=== PATIENT | female | born 1975 | race Caucasian/White ===

== ENCOUNTER 2019-09-21 13:23 | Emergency (ER) | payer BC ==
[2019-09-21 13:42] VITALS: BP 161/90; PULSE 97
[2019-09-21] MEDS ORDERED: Ketorolac 60 MG/2 ML SDV IM ONE (13:46)
--- NOTE | 2019-09-21 14:09 | EDM.PDOC ---
ED HPI GENERAL MEDICAL PROBLEM - General Chief Complaint: Lower Extremity Injury/Pain Stated Complaint: RIGHT KNEE PAIN Time Seen by Provider: 09/21/19 14:09 Source of Information: Reports: Patient History Limitations: Reports: No Limitations - History of Present Illness INITIAL COMMENTS - FREE TEXT/NARRATIVE: HISTORY AND PHYSICAL: History of present illness: Patient is a 44-year-old female who presents to the emergency room with complaints of left knee pain. She states she was bending down when she felt a pop to her left knee. She states it became painful to ambulate and bear weight. Denies falling, any traumatic injury or previous surgery of this affected extremity. Offers no systemic complaints. Review of systems: As per history of present illness and below otherwise all systems reviewed and negative. Past medical history: As per history of present illness and as reviewed below otherwise noncontributory. Surgical history: As per history of present illness and as reviewed below otherwise noncontributory. Social history: See social history for further information Family history: As per history of present illness and as reviewed below otherwise noncontributory. Physical exam: General: Well-developed and well-nourished 44-year-old female. Alert and oriented. Nontoxic appearing and in no acute distress. HEENT: Atraumatic, normocephalic, pupils equal and reactive bilaterally, negative for conjunctival pallor or scleral icterus, mucous membranes moist, trachea midline. No drooling or trismus noted. No meningeal signs. No hot potato voice noted. Lungs: Clear to auscultation, breath sounds equal bilaterally, chest nontender. Heart: S1S2, regular rate and rhythm without overt murmur Abdomen: Soft, nondistended, nontender. Negative for masses. Skin: Intact, warm, dry. No lesions or rashes noted. Extremities: Mild pain with palpation of the medial and lateral knee. She moves all extremities per self without difficulty or deficits, negative for cords or calf pain. Strong pedal pulses. Neurovascular unremarkable. Neuro: Awake, alert, oriented. Cranial nerves II through XII unremarkable. Cerebellum unremarkable. Motor and sensory unremarkable throughout. Exam nonfocal. Notes: X-ray shows no acute findings. Crutches and Buck wrap were applied with education. We discussed the importance of following up with orthopedic provider. Supportive care measures were reviewed and discussed. Voices understanding and is agreeable to plan of care. Denies any further questions or concerns at this time. Diagnostics: Knee x-ray Therapeutics: Buck wrap, crutches Prescription: Diclofenac Impression: Knee injury, left Plan: 1. Rest, ice, elevate the affected extremity. Please wear the buck wrap and crutches as directed. 2. Tylenol and/or Ibuprofen as needed for pain management. 3. Follow up with the Orthopedic provider as we discussed. Return to the ED as needed and as discussed. Definitive disposition and diagnosis as appropriate pending reevaluation and review of above. Left Knee Pain Score (Numeric/FACES): 7 - Related Data Allergies Allergy/AdvReac Type Severity Reaction Status Date / Time adhesive Allergy Rash Verified 09/21/19 13:38 insect venom Allergy Anaphylactic Uncoded 09/21/19 13:38 Shock Home Meds: Home Meds ALPRAZolam [Xanax] 1 mg PO QID PRN 02/07/15 [History] Past Medical History Psychiatric History: Reports: Anxiety Oncologic (Cancer) History: Reports: Uterine - Infectious Disease History Infectious Disease History: Reports: Chicken Pox - Past Surgical History Female Surgical History: Reports: Hysterectomy Social & Family History - Family History Family Medical History: Noncontributory - Tobacco Use Smoking Status *Q: Current Every Day Smoker Years of Tobacco use: 30 Packs/Tins Daily: 1 - Caffeine Use Caffeine Use: Reports: Coffee - Recreational Drug Use Recreational Drug Use: No Review of Systems - Review of Systems Review Of Systems: Comprehensive ROS is negative, except as noted in HPI. ED EXAM, GENERAL - Physical Exam Exam: See Below (See dictation) Course - Vital Signs Last Recorded V/S: Last Vital Signs Temp 98.4 F 09/21/19 13:39 Pulse 97 09/21/19 13:39 Resp 20 09/21/19 13:39 BP 161/90 H 09/21/19 13:39 Pulse Ox 100 09/21/19 13:39 - Orders/Labs/Meds Orders: Active Orders 24 hr Category Date Time Status DME for Discharge [COMM] Stat Oth 09/21/19 13:47 Ordered Meds: Medications Discontinued Medications Generic Name Dose Route Start Last Admin Trade Name Freq PRN Reason Stop Dose Admin Ketorolac Tromethamine 60 mg 09/21/19 13:46 09/21/19 14:20 Toradol IM 09/21/19 13:47 60 mg ONETIME ONE Administration Departure - Departure Time of Disposition: 14:43 Disposition: Home, Self-Care 01 Clinical Impression: Left knee injury Qualifiers: Encounter type: initial encounter Qualified Code(s): S89.92XA - Unspecified injury of left lower leg, initial encounter - Discharge Information Instructions: Knee Sprain, Adult, [id number] Referrals: Adilene Tracy, BOAT CANVAS MAKER INSTALLER [Primary Care Provider] - Forms: ED Department Discharge Additional Instructions: The following information is given to patients seen in the emergency department who are being discharged to home. This information is to outline your options for follow-up care. We provide all patients seen in our emergency department with a follow-up referral. The need for follow-up, as well as the timing and circumstances, are variable depending upon the specifics of your emergency department visit. If you don't have a primary care physician on staff, we will provide you with a referral. We always advise you to contact your personal physician following an emergency department visit to inform them of the circumstance of the visit and for follow-up with them and/or the need for any referrals to a consulting specialist. The emergency department will also refer you to a specialist when appropriate. This referral assures that you have the opportunity for follow-up care with a specialist. All of these measure are taken in an effort to provide you with optimal care, which includes your follow-up. Under all circumstances we always encourage you to contact your private physician who remains a resource for coordinating your care. When calling for follow-up care, please make the office aware that this follow-up is from your recent emergency room visit. If for any reason you are refused follow-up, please contact the [facility] Emergency Department at and asked to speak to the emergency department charge nurse. [facility] [address] [place] [id number] [facility] [address] [place] [address] 1. Rest, ice, elevate the affected extremity. Please wear the buck wrap and crutches as directed. 2. Tylenol and/or Ibuprofen as needed for pain management. 3. Follow up with the Orthopedic provider as we discussed. Return to the ED as needed and as discussed. - My Orders Last 24 Hours: My Active Orders 09/21/19 13:47 DME for Discharge [COMM] Stat - Assessment/Plan Last 24 Hours: My Active Orders 09/21/19 13:47 DME for Discharge [COMM] Stat
--- NOTE | 2019-09-21 14:38 | CR ---
INDICATION: Left knee pain. TECHNIQUE: Three views the left knee. FINDINGS: Bones and joint spaces are intact. No fracture, dislocation, or significant joint effusion. No destructive or osteolytic lesions. Narrowing of the lateral patellofemoral joint space on the lateral film Dictated by Sb Phelan MD @ Sep 21 2019 2:34PM Signed by Dr. Sb Phelan @ Sep 21 2019 2:38PM
== END 2019-09-21 14:56 | disposition home or self-care (01) ==
LOC: MW.ED 13:23
DX: S89.92XA Unspecified injury of left lower leg, initial encounter (principal); F41.9 Anxiety disorder, unspecified; F17.210 Nicotine dependence, cigarettes, uncomplicated; Z79.899 Other long term (current) drug therapy; Z91.09 Other allergy status, other than to drugs and biological substances; X50.9XXA Other and unspecified overexertion or strenuous movements or postures, initial encounter
CPT/HCPCS: 73562; 96372; 99283; J1885

== ENCOUNTER 2019-10-11 14:53 | Emergency (ER) | payer BC ==
--- NOTE | 2019-10-11 16:18 | EDM.PDOC ---
ED HPI GENERAL MEDICAL PROBLEM - General Chief Complaint: Lower Extremity Injury/Pain Stated Complaint: LEG INJURY Time Seen by Provider: 10/11/19 16:17 - History of Present Illness INITIAL COMMENTS - FREE TEXT/NARRATIVE: HPI 44-year-old morbidly obese female with a history of recently rupture Bakers cyst presents for evaluation of pain in her distal left posterior That began suddenly with a pop sensation while walking at [employer]. No history of DVT, PE , calf tenderness, exogenous estrogen usage, immobilization, shortness breath, or surgery. ROS with no recent constitutional symptoms. Exam HR 97, RR 20, BP 183/90, T 36.2C, SaO2 98% on room air. Gen: Pleasant, nontoxic-appearing, resting comfortably. HEENT: NC, AT, PEERL, EOMI. Resp: Unlabored respirations with a normal work of breathing. Card: Extremities warm and well perfused. GI: Non-distended. : Deferred MSK: left calf without visible or palpable trauma, muscle compartments soft and non-tender to palpation. Pena test with plantar flexion. No tenderness to palpation over the tibia or fibula. Ankle visually normal without ecchymosis inferior to the lateral malleolus. No tenderness over the posterior lateral malleolus, no tenderness over the posterior medial malleolus. Able to fully dorsiflex, plantarflex, matheus, and invert the ankle with full functional range of motion . Foot visually normal without tenderness to palpation, specifically including the navicular bone and the base of the 5th metatarsal. Able flex and extend all toes. Muscle compartments of the foot are soft. Neurovascular 2+ DP and PT pulses. Sensation grossly intact to touch on the calf. Sensation intact to touch on all toes, first web space, the medial, lateral, plantar and dorsal surfaces of the foot. Gait - Patient able to take four steps with a mildly antalgic gait. Neuro: alert and oriented 3, no facial asymmetry, vision and hearing WNL. Heme/Lymph: Deferred Skin: Normal color with no visible lesions (other than noted above). Psych: Mood and affect appropriate. MDM Previous chart, nursing note, and vitals reviewed. A: 44-year-old morbidly obese female with a history of recently rupture Bakers cyst presents for evaluation of pain in her distal left posterior That began suddenly with a pop sensation while walking at [employer]. DDx & Evaluation: CMS intact, no features suggestive of DVT, fracture, infection /deep space infection. Given the location over the distal posterior calf at the insertion of the Achilles tendon strongly suspect a mild injury to the gastrocnemius muscle/Achilles tendon. Patient remains amatory with minimal discernible discomfort, recommend crutches (which the patient has at home and is declining a pair during todays evaluation), rest, ice, compression, elevation, and PCP follow-up within 48 hours repeat evaluation. Impression: left calf pain. (please reference below for remainder of encounter information) - Related Data Allergies Allergy/AdvReac Type Severity Reaction Status Date / Time adhesive Allergy Rash Verified 09/21/19 13:38 insect venom Allergy Anaphylactic Uncoded 09/21/19 13:38 Shock Home Meds: Home Meds ALPRAZolam [Xanax] 1 mg PO QID PRN 02/07/15 [History] Diclofenac Sodium [Voltaren] 75 mg PO BIDMEALS PRN #30 tab.cr 09/21/19 [Rx] Past Medical History Other Musculoskeletal History: cyst removed from left knee area causing chronic instability per PT Psychiatric History: Reports: Anxiety Oncologic (Cancer) History: Reports: Uterine - Infectious Disease History Infectious Disease History: Reports: Chicken Pox - Past Surgical History Female Surgical History: Reports: Hysterectomy Social & Family History - Family History Family Medical History: Noncontributory - Tobacco Use Smoking Status *Q: Current Every Day Smoker Years of Tobacco use: 30 Packs/Tins Daily: 1 - Caffeine Use Caffeine Use: Reports: Coffee - Recreational Drug Use Recreational Drug Use: No Review of Systems - Review of Systems Review Of Systems: See Below ED EXAM, GENERAL - Physical Exam Exam: See Below Course - Vital Signs Last Recorded V/S: Last Vital Signs Temp 36.2 C 12/28/19 15:21 Pulse 97 10/11/19 15:21 Resp 20 10/11/19 15:21 BP 183/90 H 10/11/19 15:21 Pulse Ox 98 10/11/19 15:21 Departure - Departure Time of Disposition: 16:17 Disposition: Home, Self-Care 01 Clinical Impression: Strain of calf muscle - Discharge Information Referrals: Adilene Tracy, BICYCLE MECHANIC [Primary Care Provider] - Additional Instructions: You were in seen in the [facility] Emergency Department for evaluation of pain to your left calf, your believed to have a strain of your calf muscle, you may use ibuprofen and acetaminophen as directed below for treatment of pain. You may use your crutches to assist with walking. You may return to normal walking as tolerated by mild discomfort. Please read and follow all of the instructions below. Please follow up with your primary care physician within 4 days for repeat evaluation further care as needed. When calling for follow-up care, please make the office aware that this follow-up is from your recent emergency room visit. If for any reason you are refused follow-up, please contact the [facility] Emergency Department at and asked to speak to the emergency department charge nurse. Your care today was limited to identifying and treating emergent medical problems only. Many people have subtle differences in their test results that require follow up with their outpatient physician(s) to correctly determine if this represents a normal variation or concerning abnormality with respect to your specific health. The care given to you today was limited to identifying and treating emergent medical problems - you need to request a copy of all of your medical records from today's visit and follow up with your outpatient physician(s) to review both today's visit and your overall health. If you have any new symptoms or if you are at all concerned about your health please return immediately to the emergency department. You make take over the counter Acetaminophen (Tylenol) and Ibuprofen (Motrin or Aleve) as directed below for relief of pain. Take 600 mg of ibuprofen (three 200 mg tablets) with a glass of water every 6-8 hours as needed for pain or fever. Do not take if you have ulcers, GI bleeding, are , or are allergic to ibuprofen. Take 1,000 mg of acetaminophen (two 500 mg tablets) with a glass of water every 6-8 hours as needed for pain. Do not take if you are allergic to acetaminophen. If you have liver disease, please reduce your dose to a maximum of 2,000 mg per day. You can take these medications at the same time or on separate schedules. Do not take for more than 10 days. Do not take with alcohol or other acetaminophen containing medications. This medication may cause a mildly upset stomach, if so take it with a small snack. Stop taking it if you have persistent abdominal pain, heartburn, or any stomach pain. Do not take this medication if you have known ulcers. Please read the warnings at the end of this document regarding these medications. IBUPROFEN WARNING: This drug may infrequently cause serious (rarely fatal) bleeding from the stomach or intestines. Also, related drugs rarely have caused blood clots to form, resulting in heart attacks and strokes. This medication might also rarely cause similar problems. Talk to your doctor or pharmacist about the benefits and risks of treatment, as well as other possible medication choices. If you notice any of the following rare but very serious side effects, stop taking ibuprofen and seek immediate medical attention: black stools, persistent stomach/abdominal pain, vomit that looks like coffee grounds, chest pain, weakness on one side of the body, sudden vision changes, slurred speech. IBUPROFEN SIDE EFFECTS: Upset stomach, nausea, vomiting, heartburn, headache, diarrhea, constipation, drowsiness, and dizziness may occur. If any of these effects persist or worsen, notify your doctor or pharmacist promptly. If your doctor has directed you to use this medication, remember that he or she has judged that the benefit to you is greater than the risk of side effects. Many people using this medication do not have serious side effects. Tell your doctor immediately if any of these serious side effects occur: stomach pain, swelling of the hands or feet, sudden or unexplained weight gain, ringing in the ears ( tinnitus). Tell your doctor immediately if any of these unlikely but serious side effects occur: vision changes, rapid or pounding heartbeat, easy bruising or bleeding, difficult/painful swallowing. Tell your doctor immediately if any of these highly unlikely but very serious side effects occur: change in amount of urine, severe headache, very stiff neck, mental/mood changes, persistent sore throat or fever. This drug may rarely cause serious (possibly fatal) liver disease. If you notice any of the following highly unlikely but very serious side effects, stop taking ibuprofen and consult your doctor or pharmacist immediately: yellowing eyes and skin, dark urine, unusual/extreme tiredness. An allergic reaction to this drug is unlikely, but seek immediate medical attention if it occurs. Symptoms of an allergic reaction include: rash, itching/ swelling (especially of the face/tongue/throat), severe dizziness, trouble breathing. This is not a complete list of possible side effects. ACETAMINOPHEN SIDE EFFECTS: This drug usually has no side effects. If you do not have liver problems, the maximum dose of acetaminophen for adults is 4 grams per day (4000 milligrams). Taking more than the maximum daily amount may cause serious (possibly fatal) liver damage. Get medical help right away if you have any of the following symptoms of liver damage: persistent nausea/vomiting, extreme tiredness, stomach/abdominal pain, yellowing eyes/skin, dark urine. If you have liver problems, consult your doctor or pharmacist for a safe dosage of this medication. A very serious allergic reaction to this drug is rare. However , get medical help right away if you notice any symptoms of a serious allergic reaction, including: rash, itching/swelling (especially of the face/tongue/ throat), severe dizziness, trouble breathing. This is not a complete list of possible side effects. If you notice other effects not listed above, contact your doctor or pharmacist. DRUG INTERACTIONS: Your healthcare professionals (e.g., doctor or pharmacist) may already be aware of any possible drug interactions and may be monitoring you for it. Do not start, stop or change the dosage of any medicine before checking with them first. This drug should not be used with the following medications because very serious interactions may occur: cidofovir, ketorolac. If you are currently using any of these medications listed above, tell your doctor or pharmacist before starting ibuprofen. Before using this medication, tell your doctor or pharmacist of all prescription and nonprescription/herbal products you may use, especially of: anti-platelet drugs (e.g., cilostazol, clopidogrel), oral bisphosphonates (e.g., alendronate), other medications for arthritis (e.g., aspirin, methotrexate), "blood thinners" (e.g., enoxaparin, heparin, warfarin), corticosteroids (e.g., prednisone), cyclosporine, desmopressin, high blood pressure drugs (including MAULIK inhibitors such as captopril, angiotensin II receptor antagonists such as losartan, and beta- blockers such as metoprolol), lithium, pemetrexed, "water pills" (diuretics such as furosemide, hydrochlorothiazide, triamterene). Check all prescription and nonprescription medicine labels carefully for other pain/fever drugs ( NSAIDs such as aspirin, celecoxib, naproxen). These drugs are similar to ibuprofen, so taking one of these drugs while also taking ibuprofen may increase your risk of side effects. Consult your doctor or pharmacist for more details. However, if your doctor has prescribed low doses of aspirin to prevent heart attack or stroke (usually at dosages of 81-325 milligrams a day), you should continue to take the aspirin. Daily use of ibuprofen may decrease aspirin 's ability to prevent heart attack/stroke. Talk to your doctor about using a different medication (e.g., acetaminophen) to treat pain/fever. If you must take ibuprofen, talk to your doctor about possibly taking immediate-release aspirin (not enteric-coated) while also taking the ibuprofen dose apart from your aspirin dose. Do not increase your daily dose of aspirin or change the way you take aspirin/other medications without your doctor's approval. This document does not contain all possible interactions. Therefore, before using this product, tell your doctor or pharmacist of all the products you use. Keep a list of all your medications with you, and share the list with your doctor and pharmacist. High Blood Pressure (Hypertension) When you were in the emergency department you had an abnormally high blood pressure. High blood pressure can be without symptoms. However high blood pressure can lead to many medical problems including kidney disease, strokes, and heart attacks. Your blood pressure may have been elevated due to pain or the stress of being in the emergency department, however half of people with an elevated blood pressure in the emergency department have buttermaker helper problems with high blood pressure. Please see your primary care physician in 2-3 days for a repeat check of your blood pressure. This may help prevent many health serious problems in the future. Please return to the emergency department if you develop any of the following: chest pain, shortness of breath, new or severe headache, changes in vision or hearing, weakness, or if you are otherwise concerned about your health. Prescriptions: If you are uninsured or have financial difficulties with filling your prescription(s), you may consider using a free pharmacy discount service such as [employer] (Rumble[employer]rx[employer]Bownty) or [employer] ([employer]own[employer]). These services allow you to search for a medication on your phone (or computer) and obtain a coupon that usually has a significant discount from the list couch at a pharmacy. Your physician as well as [facility] does not have a financial relationship with either of these services. You may also wish to speak with your physician to determine if lower cost prescriptions are possible. Obtaining primary care: 1. [facility] provides pediatrics (children), family medicine (children, adults, and some obstetrical care), and internal medicine (adults). Further specialty care is also available. Same day appointments are available. They may be contacted at [phone] and are open Sunday through Sunday 8 AM to 5 PM. The [facility] are located at [facility], [address] [place] [address]. 2. [facility] offers family medicine, internal medicine, [facility], and further specialty care. [facility] may be contacted at [phone]. [facility] is located at [address] [facility] [address]. 3. If you have health insurance, please also contact your insurer for a list of accepting providers under your policy, you may contact these providers for further health care. Occupational health: Work related injuries may consider following up with [facility], . Occupational health services are located at [address] [place] [address] and are open Sunday through Sunday from 7: 30 am to 5:00 pm. Obstetrical and Gynecological Care: [facility], , Sunday through Sunday 8 AM to 5 PM. [address] [address]. Eyecare: If you have an eye injury you should follow up with your stone setter apprentice or with [facility], at [phone] or [phone] , they are located at [address] [place] [address]. Sepsis Event Note - Evaluation Sepsis Screening Result: No Definite Risk - Focused Exam Vital Signs: Vital Signs Temp Pulse Resp BP Pulse Ox 10/11/19 15:21 36.2 C 97 20 183/90 H 98 Date Exam was Performed: 10/11/19 Time Exam was Performed: 16:17
[2019-10-11 16:29] VITALS: BP 182/86; PULSE 86
== END 2019-10-11 16:29 | disposition home or self-care (01) ==
LOC: MW.ED 14:53
DX: S46.912A Strain of unspecified muscle, fascia and tendon at shoulder and upper arm level, left arm, initial encounter (principal); F17.210 Nicotine dependence, cigarettes, uncomplicated; E66.01 Morbid (severe) obesity due to excess calories; Z68.41 Body mass index [BMI] 40.0-44.9, adult; X58.XXXA Exposure to other specified factors, initial encounter
CPT/HCPCS: 99283

== ENCOUNTER 2021-03-21 18:11 | Emergency (ER) | payer BC ==
[2021-03-21] MEDS ORDERED: Dexamethasone 10 MG/ML SDV IM STA (19:14)
--- NOTE | 2021-03-21 19:17 | EDM.PDOC ---
ED HPI GENERAL MEDICAL PROBLEM - General Chief Complaint: Skin Complaint Stated Complaint: POSSIBLE SUN RASH Time Seen by Provider: 03/21/21 19:09 - History of Present Illness INITIAL COMMENTS - FREE TEXT/NARRATIVE: History of present illness: [] The patient was opposed to sunlight briefly and has extreme sun sensitivity and multiple allergies. There is exposed to sunlight on her arms are broken out in a rash over the last day or 2 and it severely pruritic. The patient usually gets a shot of steroids and a short course of steroids and does better. Review of systems: As per history of present illness and below otherwise all systems reviewed and negative. Past medical history: As per history of present illness and as reviewed below otherwise noncontributory. Surgical history: As per history of present illness and as reviewed below otherwise noncontributory. Social history: No reported history of drug or alcohol abuse. Family history: As per history of present illness and as reviewed below otherwise noncont ributory. Physical exam: Constitutional - well developed, well-nourished and in no acute distress HEENT -patient has no voice change, no trismus, no swelling about the mouth or face. Normocephalic, no evidence of trauma - external nose and mouth normal - no mass in neck and no JVD - mucosae moist EYES - full EOM, PERRL, no icterus - no evidence of inflammation, injection, or drainage Respiratory - no respiratory distress, equal bilateral expansion, lungs clear to auscultation and no abnormal lung sounds Cardiovascular - Regular Rhythm with S1 and S2 appreciated and no murmur, gallop or rub. GI - abdomen soft without distension or organomegaly - normal bowel sounds - no guard or rebound Musculoskeletal no gross deformity of long bones or joints - no tenderness, swelling or edema Neurologic - Alert and oriented times four - CN II-XII grossly intact - motor sensory and coordination symmetrically normal Psychiatric - appropriate mood and affect with normal thought content Hematologic - No petechiae or purpura - mucosa appropriate color and sclera not pale - normal nail bed color and refill Integument -patient has a papular extensive rash on the dorsal and lateral arms. Areas that were not exposed to sun or not covered. The palms and soles are spared. Diagnostics: [] Therapeutics: [] Impression: [] Plan: [] Definitive disposition and diagnosis as appropriate pending reevaluation and review of above. upper hands Pain Score (Numeric/FACES): 3 - Related Data Allergies Allergy/AdvReac Type Severity Reaction Status Date / Time adhesive Allergy Rash Verified 03/21/21 19:15 insect venom Allergy Anaphylactic Uncoded 03/21/21 19:15 Shock Home Meds: Home Meds ALPRAZolam [Xanax] 1 mg PO QID PRN 02/07/15 [History] Diclofenac Sodium [Voltaren] 75 mg PO BIDMEALS PRN #30 tab.cr 09/21/19 [Rx] methylPREDNISolone [Medrol Dose Pack] 4 mg PO DAILY #21 tab 03/21/21 [Rx] methylPREDNISolone [Medrol Dose Pack] 4 mg PO DAILY #21 tab 03/21/21 [Rx] Past Medical History Other Musculoskeletal History: cyst removed from left knee area causing chronic instability per PT Psychiatric History: Reports: Anxiety Oncologic (Cancer) History: Reports: Uterine - Infectious Disease History Infectious Disease History: Reports: Chicken Pox - Past Surgical History Female Surgical History: Reports: Hysterectomy Social & Family History - Family History Family Medical History: No Pertinent Family History - Caffeine Use Caffeine Use: Reports: Coffee ED ROS GENERAL - Review of Systems Review Of Systems: Comprehensive ROS is negative, except as noted in HPI. ED EXAM, SKIN/RASH Exam: See Below Text/Narrative:: My physical exam is in the HPI Course - Vital Signs Last Recorded V/S: Last Vital Signs Temp 36.4 C 03/21/21 19:10 Pulse 92 03/21/21 19:10 Resp 18 03/21/21 19:10 BP 144/91 H 03/21/21 19:10 Pulse Ox 97 03/21/21 19:10 - Orders/Labs/Meds Meds: Medications Discontinued Medications Generic Name Dose Route Start Last Admin Trade Name Miguel PRN Reason Stop Dose Admin Dexamethasone 10 mg 03/21/21 19:14 03/21/21 19:32 Dexamethasone 10 Mg/Ml Sdv IM 03/21/21 19:15 10 mg STAT STA Administration Departure - Departure Time of Disposition: 19:34 Disposition: Home, Self-Care 01 Condition: Good Clinical Impression: Sensitivity to sunlight, Urticaria - Discharge Information Prescriptions: methylPREDNISolone [Medrol Dose Pack] 4 mg PO DAILY #21 tab methylPREDNISolone [Medrol Dose Pack] 4 mg PO DAILY #21 tab Instructions: Hives Referrals: Ny De La Rosa DO [Primary Care Provider] - Forms: ED Department Discharge Additional Instructions: Benadryl and Pepcid should be taken for 3 days. These are oral preparations that are [id number]. Your steroid pack was sent to the pharmacy. If your sensitivity continues after the steroids are finished then you need to investigate environmental exposures that may be ongoing. [facility] [address], [place] [address] [facility] [address] [place] [address] The following information is given to patients seen in the emergency department who are being discharged to home. This information is to outline your options for follow-up care. We provide all patients seen in our emergency department with a follow-up referral. The need for follow-up, as well as the timing and circumstances, are variable depending upon the specifics of your emergency department visit. If you don't have a primary care physician on staff, we will provide you with a referral. We always advise you to contact your personal physician following an emergency department visit to inform them of the circumstance of the visit and for follow-up with them and/or the need for any referrals to a consulting spec ialist. The emergency department will also refer you to a specialist when appropriate. This referral assures that you have the opportunity for follow-up care with a specialist. All of these measure are taken in an effort to provide you with optimal care, which includes your follow-up. Under all circumstances we always encourage you to contact your private physician who remains a resource for coordinating your care. When calling for follow-up care, please make the office aware that this follow-up is from your recent emergency room visit. If for any reason you are refused follow-up, please contact the [facility] Emergency Department at and asked to speak to the emergency department charge nurse. Sepsis Event Note (ED) - Focused Exam Vital Signs: Vital Signs Temp Pulse Resp BP Pulse Ox 03/21/21 19:10 36.4 C 92 18 144/91 H 97
[2021-03-21 19:19] VITALS: PULSE 92
[2021-03-21 22:43] VITALS: BP 146/85
== END 2021-03-21 19:40 | disposition home or self-care (01) ==
LOC: MW.ED 18:11
DX: L50.9 Urticaria, unspecified (principal); Z91.048 Other nonmedicinal substance allergy status; Z91.030 Bee allergy status
CPT/HCPCS: 96372; 99282; J1100

== ENCOUNTER 2022-04-24 09:50 | Emergency (ER) | payer BC ==
[2022-04-24 10:15] VITALS: BP 164/88; PULSE 78
== END 2022-04-24 10:43 | disposition home or self-care (01) ==
LOC: MW.ED 09:50
DX: B02.9 Zoster without complications (principal); Z91.030 Bee allergy status; Z91.048 Other nonmedicinal substance allergy status; Z79.899 Other long term (current) drug therapy; Z90.710 Acquired absence of both cervix and uterus
CPT/HCPCS: 99282; 99283

== ENCOUNTER 2022-08-09 19:29 | Emergency (ER) | payer BC ==
[2022-08-09] MEDS ORDERED: Amoxicillin/Clavulanate K 875-125 MG Tab PO ONE (22:35)
[2022-08-09 22:52] VITALS: BP 132/68; PULSE 86
== END 2022-08-09 22:50 | disposition home or self-care (01) ==
LOC: MW.ED 19:29
DX: J01.01 Acute recurrent maxillary sinusitis (principal); F17.210 Nicotine dependence, cigarettes, uncomplicated; Z79.899 Other long term (current) drug therapy; Z90.710 Acquired absence of both cervix and uterus; Z91.048 Other nonmedicinal substance allergy status; Z91.030 Bee allergy status
CPT/HCPCS: 99282; A9270

== ENCOUNTER 2023-11-30 19:15 | Emergency (ER) | payer BC ==
[2023-11-30] MEDS: Famotidine 20 MG/2 ML SDV IVPUSH SCH (19:35)
[2023-11-30] MEDS: methylPREDNISolone Sodium Succinate 125 MG/2 ML SDV IVPUSH ONE (19:35)
[2023-11-30] MEDS: diphenhydrAMINE 50 MG/ML SDV IVPUSH ONE (19:35)
[2023-11-30 22:46] VITALS: BP 150/90; PULSE 88
== END 2023-11-30 22:20 | disposition home or self-care (01) ==
LOC: MW.ED 19:15
DX: T78.40XA Allergy, unspecified, initial encounter (principal); Z91.048 Other nonmedicinal substance allergy status; Z88.8 Allergy status to other drugs, medicaments and biological substances; Z79.899 Other long term (current) drug therapy; Z90.710 Acquired absence of both cervix and uterus
CPT/HCPCS: 96374; 96375; 99283; J1200; J2930; J3490; 99284

== ENCOUNTER 2024-09-20 19:08 | Emergency (ER) | payer BC ==
[2024-09-20] MEDS: Lidocaine 2% Viscous Solution 15 ML UD PO ONE (19:27)
[2024-09-20] MEDS: Lidocaine 4% 5 ML Amp NEB ONE (19:56)
[2024-09-20 21:31] VITALS: BP 150/99; PULSE 86
== END 2024-09-20 21:30 | disposition home or self-care (01) ==
LOC: MW.ED 19:08
DX: T17.228A Food in pharynx causing other injury, initial encounter (principal); I10 Essential (primary) hypertension; F17.210 Nicotine dependence, cigarettes, uncomplicated; Z90.710 Acquired absence of both cervix and uterus; Z91.048 Other nonmedicinal substance allergy status; Z91.038 Other insect allergy status; Z79.51 Long term (current) use of inhaled steroids; Z79.899 Other long term (current) drug therapy
CPT/HCPCS: 70360; 70490; 99284; A9270; 99283; J3490

== ENCOUNTER 2024-11-01 17:36 | Emergency (ER) | payer BC ==
[2024-11-01 18:27] LABS: BASOPHILS ABSOLUTE AUTO 0.05 K/uL (0.00-0.20); BASOPHILS PERCENT AUTO 0.4 % (0.0-1.0); EOSINOPHILS ABSOLUTE AUTO 0.12 K/uL (0.00-0.45); HEMATOCRIT 39.3 % (37.0-47.0); HEMOGLOBIN 13.4 g/dL (12.0-16.0); IMMATURE GRAN ABSOLUTE AUTO 0.02 K/uL (0.00-0.05); IMMATURE GRAN PERCENT AUTO 0.2 % (0.0-0.4); LYMPHOCYTES ABSOLUTE AUTO 3.37 K/uL (1.00-4.80); LYMPHOCYTES PERCENT AUTO 28.1 % (24.0-44.0); MEAN CORPUSCULAR HEMOGLOBIN 30.2 pg (28.0-32.0); MEAN CORPUSCULAR HGB CONC 34.1 g/dL (32.0-36.0); MEAN CORPUSCULAR VOLUME 88.7 fL (83.0-99.0); MEAN PLATELET VOLUME 9.3 fL (9.4-12.3); MONOCYTES ABSOLUTE AUTO 0.76 K/uL (0.00-0.80); MONOCYTES PERCENT AUTO 6.3 % (0.0-8.0); NEUTROPHILS ABSOLUTE AUTO 7.67 K/uL (1.80-7.70); PLATELET COUNT,PLT 404 K/uL (150-400); RED BLOOD CELL COUNT 4.43 M/uL (4.10-5.30); WHITE BLOOD CELL COUNT,WBC 11.99 K/uL (3.9-11.3)
[2024-11-01 18:50] LABS: A/G RATIO 0.7 (0.9-1.6); ALANINE AMINOTRANSFERASE,ALT 17 IU/L (14-63); ALBUMIN 3.7 g/dL (3.4-5.0); ALKALINE PHOSPHATASE 84 U/L (46-116); ASPARTATE AMNIOTRANSFERASE,AST 17 IU/L (15-37); BILIRUBIN TOTAL 0.3 mg/dL (0.2-1.0); BLOOD UREA NITROGEN,BUN 12 mg/dL (7.0-18.0); CALCIUM 9.2 mg/dL (8.5-10.1); CARBON DIOXIDE,CO2 30.1 mmol/L (21.0-32.0); CHLORIDE,CL 99 mmol/L (98-107); CREATININE 0.9 mg/dL (0.6-1.0); GLUCOSE RANDOM 101 mg/dL (74-106); LIPASE 32 U/L (16-77); POTASSIUM,K 3.8 mmol/L (3.5-5.1); SODIUM,NA 137 mmol/L (136-145)
[2024-11-01] MEDS: Ondansetron 4 MG/2 ML SDV IVPUSH ONE (18:53)
[2024-11-01] MEDS: Ketorolac 30 MG/ML SDV IVPUSH ONE (18:53)
[2024-11-01] MEDS: Sodium Chloride 0.9% 1,000 ML IV ONE (18:53)
[2024-11-01 18:56] LABS: ESTIMATED GFR 78 mL/min (>60)
[2024-11-01 19:23] LABS: APPEARANCE,URINE CLEAR; BILIRUBIN,URINE NEGATIVE (NEGATIVE); GLUCOSE,URINE 100 mg/dL (NEGATIVE); KETONES,URINE TRACE mg/dL (NEGATIVE); LEUKOCYTE ESTERASE,URINE NEGATIVE (NEGATIVE); NITRITE,URINE POSITIVE (NEGATIVE); OCCULT BLOOD,URINE TRACE-INTACT (NEGATIVE); PROTEIN,URINE 30 mg/dL (NEGATIVE)
[2024-11-01] MEDS: Iopamidol 755 MG/ML 500 ML Multipack Bottle IVPUSH ONE (19:29)
[2024-11-01 19:39] LABS: COLOR,URINE ORANGE
[2024-11-01 19:40] LABS: BACTERIA,URINE FEW (NEGATIVE); EPITHELIAL CELLS,URINE OCCASIONAL (NONE-FEW); RBC,URINE 0-3 (0-2/HPF); WBC,URINE 0-1 (0-5/HPF)
[2024-11-01 21:07] VITALS: BP 150/78; PULSE 96
[2024-11-01 21:56] LABS: CANCER ANTIGEN 125,CA 125 46.4 U/ML (0.0-35.0)
[2024-11-04 13:07] LABS: CA 125 54 U/mL (<=38)
== END 2024-11-01 21:06 | disposition home or self-care (01) ==
LOC: MW.ED 17:36
DX: R19.00 Intra-abdominal and pelvic swelling, mass and lump, unspecified site (principal); I10 Essential (primary) hypertension; Z75.8 Other problems related to medical facilities and other health care; Z88.8 Allergy status to other drugs, medicaments and biological substances; Z91.048 Other nonmedicinal substance allergy status; Z79.899 Other long term (current) drug therapy; Z90.710 Acquired absence of both cervix and uterus
CPT/HCPCS: 36415; 74177; 76705; 80053; 81001; 82378; 83690; 85025; 86304; 87086; 96361; 96374; 96375; 99284; J1885; J2405; J7030; Q9967

== ENCOUNTER 2024-11-03 01:31 | Emergency (ER) | payer BC ==
[2024-11-03] MEDS: oxyCODONE 5 MG Tab PO ONE ×2 (01:52→04:24)
[2024-11-03] MEDS: Ketorolac 30 MG/ML SDV IM ONE (01:53)
[2024-11-03] MEDS: Acetaminophen 325 MG Tab PO ONE (04:25)
[2024-11-03 04:39] VITALS: BP 154/93; PULSE 87
== END 2024-11-03 04:39 | disposition home or self-care (01) ==
LOC: MW.ED 01:31
DX: N83.8 Other noninflammatory disorders of ovary, fallopian tube and broad ligament (principal); I10 Essential (primary) hypertension; Z90.710 Acquired absence of both cervix and uterus; Z91.048 Other nonmedicinal substance allergy status; Z79.52 Long term (current) use of systemic steroids; Z79.899 Other long term (current) drug therapy
CPT/HCPCS: 76857; 96372; 99284; A9270; J1885